=== PATIENT | male | born 1975 | race African-American/Black ===

== ENCOUNTER 2020-11-01 03:12 | Inpatient (IN) | payer MEDICAID ==
[~2020-11-01] VITALS: Ht 175.3 cm; Wt 94.6 kg
[2020-11-01] MEDS ORDERED: ASPIRIN 81 MG TABLET CHEW ONE (03:59)
[2020-11-01] MEDS ORDERED: hydrALAzine 20 MG/ML, 1ML ONE (03:59)
[2020-11-01] MEDS ORDERED: ASPIRIN 81 MG TABLET CHEW PO ONE (04:00)
[2020-11-01] MEDS ORDERED: hydrALAzine 20 MG/ML, 1ML IV ONE ×2 (04:00)
[2020-11-01 04:18] LABS: BASOPHILS % (AUTO) 1 % (0-1); EOSINOPHILS % (AUTO) 2 % (1-7); LYMPHOCYTES % (AUTO) 22 % (22-44); MEAN CORPUSCULAR HEMOGLOBIN 22.4 pg (27.5-34.5); MEAN CORPUSCULAR HGB CONC 30.7 g/dL (33.2-36.2); MEAN PLATELET VOLUME 9.2 fL (7.4-10.4); MONOCYTES % (AUTO) 9 % (2-9); NEUTROPHILS % (AUTO) 65 % (42-75); PLATELET COUNT 197 x10^3/uL (130-400); RED BLOOD COUNT 4.66 x10^6/uL (4.38-5.82); RED CELL DISTRIBUTION WIDTH 18.7 % (9.4-14.8)
[2020-11-01 04:25] LABS: ALANINE AMINOTRANSFERASE 24 U/L (12-78); ALBUMIN 3.1 g/dL (3.4-5.0); ANION GAP 7 mmol/L (5-15); CALCIUM 8.7 mg/dL (8.5-10.1); CHLORIDE 110 mmol/L (98-107); CREATININE 1.77 mg/dL (0.7-1.3)
[2020-11-01 04:29] LABS: ALKALINE PHOSPHATASE 118 U/L (45-117); BILIRUBIN,TOTAL 0.4 mg/dL (0.2-1.0); TOTAL PROTEIN 7.9 g/dL (6.4-8.2)
[2020-11-01] MEDS ORDERED: LABETALOL 5MG/ML, 20ML IVPush ONE (04:30)
[2020-11-01 04:31] LABS: TROPONIN I 0.287 ng/mL (0.000-0.045)
[2020-11-01] MEDS ORDERED: LABETALOL 5MG/ML, 20ML ONE (04:37)
[2020-11-01] MEDS ORDERED: ONDANSETRON 2MG/ML, 2ML ONE (05:20)
[2020-11-01 05:24] LABS: MD SCAN
--- NOTE | 2020-11-01 05:40 | NUR ---
PT STATED HE WAS GASSEY. PRIOR PT HAD A EMERGENCY BATHROOM VISIT WHERE PT STATED HE "WENT #2" PT ON MONITOR WITH PT VSS.
[2020-11-01] MEDS ORDERED: ONDANSETRON 2MG/ML, 2ML IVPush ONE (06:00)
[2020-11-01] MEDS ORDERED: MORPHINE SULFATE 4 MG/ML, 1ML IVPush PRN (06:30)
[2020-11-01] MEDS ORDERED: ONDANSETRON 2MG/ML, 2ML IVPush PRN ×2 (06:30→09:30)
--- NOTE | 2020-11-01 06:32 | NUR ---
REPORT TO MALENA PERES FOR ROOM [phone]
[2020-11-01 08:22] VITALS: BP 167/119
[2020-11-01 08:49] LABS: AMPHETAMINE SCREEN, URINE Negative (Negative); BARBITURATE SCREEN, URINE Negative (Negative); BENZODIAZEPINE SCREEN, URINE Negative (Negative); CANNABINOID SCREEN, URINE Positive (Negative); COCAINE SCREEN, URINE Negative (Negative); METHADONE SCREEN, URINE Negative (Negative); OPIATE SCREEN, URINE Negative (Negative)
[2020-11-01] MEDS ORDERED: morphine SULFATE 10 MG/ML, 1ML IVPush PRN (09:30)
[2020-11-01] MEDS ORDERED: POLYETHYLENE GLYCOL 17 GM PACKET PO PRN (09:30)
[2020-11-01] MEDS ORDERED: hydrALAzine 20 MG/ML, 1ML IVPush PRN (09:30)
[2020-11-01] MEDS ORDERED: ACETAMINOPHEN 325 MG TABLET PO PRN (09:30)
[2020-11-01] MEDS ORDERED: ONDANSETRON ODT 4 MG PO PRN (09:30)
[2020-11-01 10:02] LABS: MICROSCOPIC AUTO
[2020-11-01] MEDS: AMLODIPINE 5 MG TABLET PO SCH ×2 (10:51→21:09)
[2020-11-01] MEDS: SENNA/DOCUSATE TABLET PO SCH (10:52)
[2020-11-01] MEDS: HEPARIN 5,000 UNITS/ML, 1ML SQ SCH ×2 (10:52→19:02)
[2020-11-01] MEDS: PANTOPRAZOLE 40 MG IV IVPush SCH ×2 (10:53→21:09)
[2020-11-01 12:31] VITALS: BP 182/128
[2020-11-01] MEDS: LABETALOL 5MG/ML, 20ML IVPush PRN ×2 (12:52→17:29)
[2020-11-01 13:11] VITALS: BP 164/102
[2020-11-01 13:58] LABS: TROPONIN I 0.211 ng/mL (0.000-0.045)
[2020-11-01 17:28] VITALS: BP 181/134
[2020-11-01 20:55] VITALS: BP 157/99
[2020-11-01] MEDS ORDERED: TRAZODONE 50MG TABLET PO PRN (21:00)
[2020-11-01] MEDS ORDERED: HYDROcodone/APAP 10/325 MG TABLET ONE (21:06)
[2020-11-01] MEDS ORDERED: HYDROcodone/APAP 5/325 TABLET ONE (21:06)
[2020-11-02] VITALS (10 sets, daily range): BP systolic 153–209; BP diastolic 82–139
[2020-11-02] MEDS: hydrALAzine 20 MG/ML, 1ML IVPush PRN ×3 (01:10→13:03)
[2020-11-02] MEDS: HEPARIN 5,000 UNITS/ML, 1ML SQ SCH ×3 (03:00→19:00)
[2020-11-02 06:40] LABS: BASOPHILS % (AUTO) 1 % (0-1); EOSINOPHILS % (AUTO) 2 % (1-7); LYMPHOCYTES % (AUTO) 17 % (22-44); MEAN CORPUSCULAR HEMOGLOBIN 22.1 pg (27.5-34.5); MEAN PLATELET VOLUME 8.9 fL (7.4-10.4); MONOCYTES % (AUTO) 10 % (2-9); NEUTROPHILS % (AUTO) 71 % (42-75); PLATELET COUNT 224 x10^3/uL (130-400); RED CELL DISTRIBUTION WIDTH 18.5 % (9.4-14.8)
[2020-11-02 06:43] LABS: MD NO
[2020-11-02 06:52] LABS: ALBUMIN 3.1 g/dL (3.4-5.0); ANION GAP 9 mmol/L (5-15); CHLORIDE 108 mmol/L (98-107); CHOLESTEROL, TOTAL 162 mg/dL (140-239)
[2020-11-02 06:56] LABS: % IRON SATURATION 5 % (20-55); ALANINE AMINOTRANSFERASE 25 U/L (12-78); ALKALINE PHOSPHATASE 106 U/L (45-117); BILIRUBIN,TOTAL 0.5 mg/dL (0.2-1.0); CHOL/HDL RATIO 2.5; CREATININE 1.83 mg/dL (0.7-1.3); HDL CHOL % 41 % (26-37); HDL CHOLESTEROL (DIRECT) 66 mg/dL (40-60); IRON LEVEL 21 mcg/dL (65-175); LDL CHOLESTEROL,CALCULATED 77 mg/dL (54-169); LDL/HDL RATIO 1.2 (0.5-3.0); TOTAL IRON BINDING CAPACITY 431 mcg/dL (250-450); TOTAL PROTEIN 7.7 g/dL (6.4-8.2); TRIGLYCERIDES 95 mg/dL (50-200); VLDL CHOLESTEROL 19 mg/dL (0-25)
[2020-11-02] MEDS ORDERED: POTASSIUM CHLORIDE 20 MEQ TAB.ER.PRT PO ONE ×2 (07:30→08:30)
[2020-11-02] MEDS: AMLODIPINE 5 MG TABLET PO SCH ×2 (08:00→20:36)
[2020-11-02] MEDS ORDERED: METOPROLOL SUCCINATE 50 MG TAB.ER.24H PO SCH (08:00)
[2020-11-02] MEDS: PANTOPRAZOLE 40 MG IV IVPush SCH ×2 (08:01→20:40)
[2020-11-02] MEDS: SENNA/DOCUSATE TABLET PO SCH (08:06)
[2020-11-02] MEDS ORDERED: METOPROLOL SUCCINATE 50 MG TAB.ER.24H ONE (08:14)
[2020-11-02] MEDS: LABETALOL 5MG/ML, 20ML IVPush PRN ×2 (11:15→17:01)
[2020-11-02] MEDS: LISINOPRIL 5 MG TABLET PO SCH (13:30)
[2020-11-03] VITALS (13 sets, daily range): BP systolic 154–192; BP diastolic 99–137
[2020-11-03] MEDS: METOPROLOL SUCCINATE 50 MG TAB.ER.24H PO SCH (06:00)
[2020-11-03] MEDS: hydrALAzine 20 MG/ML, 1ML IVPush PRN ×2 (06:12→13:56)
[2020-11-03] MEDS ORDERED: LABETALOL 5MG/ML, 20ML IVPush PRN (07:30)
[2020-11-03 07:55] LABS: BASOPHILS % (AUTO) 1 % (0-1); EOSINOPHILS % (AUTO) 3 % (1-7); LYMPHOCYTES % (AUTO) 18 % (22-44); MEAN CORPUSCULAR HEMOGLOBIN 22.2 pg (27.5-34.5); MEAN CORPUSCULAR HGB CONC 31.1 g/dL (33.2-36.2); MEAN PLATELET VOLUME 8.7 fL (7.4-10.4); MONOCYTES % (AUTO) 10 % (2-9); NEUTROPHILS % (AUTO) 68 % (42-75); PLATELET COUNT 219 x10^3/uL (130-400); RED BLOOD COUNT 4.42 x10^6/uL (4.38-5.82); RED CELL DISTRIBUTION WIDTH 18.8 % (9.4-14.8)
[2020-11-03 08:00] LABS: MD NO
[2020-11-03 08:05] LABS: ALBUMIN 2.9 g/dL (3.4-5.0); ANION GAP 9 mmol/L (5-15); CALCIUM 8.9 mg/dL (8.5-10.1); CHLORIDE 109 mmol/L (98-107); CREATININE 1.83 mg/dL (0.7-1.3)
[2020-11-03] MEDS: PANTOPRAZOLE 40MG TABLET PO SCH ×2 (08:12→19:58)
[2020-11-03] MEDS: SENNA/DOCUSATE TABLET PO SCH (08:12)
[2020-11-03] MEDS: LISINOPRIL 5 MG TABLET PO SCH (08:12)
[2020-11-03] MEDS: AMLODIPINE 5 MG TABLET PO SCH ×2 (08:12→19:58)
[2020-11-03] MEDS: HEPARIN 5,000 UNITS/ML, 1ML SQ SCH ×2 (08:13→15:57)
[2020-11-03] MEDS ORDERED: LISINOPRIL 5 MG TABLET PO SCH (09:00)
[2020-11-03] MEDS: IRON SUCROSE COMPLEX 100MG/5ML IV SCH (10:54)
[2020-11-03] MEDS ORDERED: HYDROcodone/APAP 5/325 TABLET ONE (11:35)
[2020-11-03] MEDS: NITROGLYCERIN 0.4 MG/SPRAY SL PRN ×3 (13:23→13:36)
[2020-11-04] VITALS (7 sets, daily range): BP systolic 151–205; BP diastolic 96–132
[2020-11-04] MEDS: hydrALAzine 20 MG/ML, 1ML IVPush PRN (00:34)
[2020-11-04] MEDS ORDERED: LABETALOL 5MG/ML, 20ML IVPush PRN (03:30)
[2020-11-04] MEDS: METOPROLOL SUCCINATE 50 MG TAB.ER.24H PO SCH (06:05)
[2020-11-04] MEDS: HEPARIN 5,000 UNITS/ML, 1ML SQ SCH ×2 (07:40)
[2020-11-04] MEDS: AMLODIPINE 5 MG TABLET PO SCH (07:41)
[2020-11-04] MEDS: SENNA/DOCUSATE TABLET PO SCH (07:42)
[2020-11-04] MEDS: IRON SUCROSE COMPLEX 100MG/5ML IV SCH (07:42)
[2020-11-04] MEDS: PANTOPRAZOLE 40MG TABLET PO SCH (07:42)
[2020-11-04] MEDS ORDERED: LISINOPRIL 20 MG TABLET PO SCH (09:00)
[2020-11-04] MEDS ORDERED: SPIRONOLACTONE 50 MG TABLET PO SCH (09:00)
[2020-11-04 09:13] LABS: BASOPHILS % (AUTO) 1 % (0-1); EOSINOPHILS % (AUTO) 2 % (1-7); LYMPHOCYTES % (AUTO) 19 % (22-44); MEAN CORPUSCULAR HEMOGLOBIN 22.1 pg (27.5-34.5); MEAN CORPUSCULAR HGB CONC 30.6 g/dL (33.2-36.2); MEAN PLATELET VOLUME 9.2 fL (7.4-10.4); MONOCYTES % (AUTO) 9 % (2-9); NEUTROPHILS % (AUTO) 70 % (42-75); PLATELET COUNT 230 x10^3/uL (130-400); RED BLOOD COUNT 4.59 x10^6/uL (4.38-5.82); RED CELL DISTRIBUTION WIDTH 18.5 % (9.4-14.8)
[2020-11-04 09:19] LABS: MD NO
[2020-11-04 09:20] LABS: ANION GAP 8 mmol/L (5-15); CHLORIDE 110 mmol/L (98-107)
[2020-11-04 09:23] LABS: CREATININE 1.86 mg/dL (0.7-1.3)
== END 2020-11-04 14:06 | disposition left against medical advice (07) | DRG 280 ==
LOC: ED 06:40 → 5SO 07:22
PROVIDERS: ADMIT Family Medicine; ATTEND Internal Medicine
DX: I13.0 Hypertensive heart and chronic kidney disease with heart failure and stage 1 through stage 4 chronic kidney disease, or unspecified chronic kidney disease (principal); I50.31 Acute diastolic (congestive) heart failure; I21.4 Non-ST elevation (NSTEMI) myocardial infarction; N17.0 Acute kidney failure with tubular necrosis; I16.1 Hypertensive emergency; I25.5 Ischemic cardiomyopathy; N18.9 Chronic kidney disease, unspecified; F15.10 Other stimulant abuse, uncomplicated; D50.9 Iron deficiency anemia, unspecified; E87.6 Hypokalemia; F17.210 Nicotine dependence, cigarettes, uncomplicated; Z53.29 Procedure and treatment not carried out because of patient's decision for other reasons; F12.90 Cannabis use, unspecified, uncomplicated; Z91.14 Patient's other noncompliance with medication regimen; Z63.8 Other specified problems related to primary support group; Z59.0 Homelessness; Z82.49 Family history of ischemic heart disease and other diseases of the circulatory system; Z82.3 Family history of stroke; Z84.1 Family history of disorders of kidney and ureter; Z79.899 Other long term (current) drug therapy
CPT/HCPCS: 36415; 70450; 71045; 71250; 80048; 80053; 80061; 80069; 80307; 81001; 82140; 82570; 82728; 83021; 83036; 83540; 83550; 83690; 83735; 83880; 84100; 84156; 84443; 84484; 85025; 85660; 87040; 93005; 93306; 96374; 96375; 99291; G0378; J1644; J1756; J2405; C9113; J0360